=== PATIENT | female | born 1985 | race Caucasian/White ===

== ENCOUNTER 2017-04-12 14:03 | Emergency (ER) | payer BC ==
[~2017-04-12 14:03] MED LIST: IBUP600 PO; PREN0.01 PO
--- NOTE | 2017-04-12 15:34 | PD ---
HPI Chief Complaint pelvic pain Date Seen: Apr 12, 2017 Time Seen: 15:28 Travel History International Travel<30 Days: No Contact w/Intl Traveler<30Days: No Known Affected Area: No History of Present Illness HPI pt. is a @ 34 weeks present w/ c/o pelvic pressure. pt. states began feeling more and more pressure since last pm. was intense and unable to move legs. since improved. +FM, no lof/vb, no ctxs. Weeks Gestation: 34 Para: 2 : 3 History Past Medical History Medical History: Denies Significant Hx Past Surgical History Surgical History: No Previous Surgery Family History Family History: Negative Social History Alcohol Use: No Tobacco Use: No Substance Abuse: No Allergies-Medications (Allergen,Severity, Reaction): Coded Allergies: No Known Allergies (Unverified , 07/28/15) Home Meds Active Scripts Ibuprofen (Motrin 600 Mg Tab) 600 Mg Tab, 600 MG PO Q6H Y for CRAMPING, #30 TAB 0 Refills Prov:Keena Braden MD 08/02/15 Reported Medications Multivit/Min/Fol Ac/Iron/Pren ( Vit ( Plus)) Tab, 1 TAB PO DAILY, TAB 01/08/13 Review of Systems Except as stated in HPI: all other systems reviewed are Neg Physical Exam Narrative GENERAL: Well-nourished, well-developed patient. SKIN: Warm and dry. HEAD: Normocephalic and atraumatic. EYES: No scleral icterus. No injection or drainage. ENT: No nasal drainage noted. Mucous membranes pink. Airway patent. NECK: Supple, trachea midline. No JVD. CARDIOVASCULAR: Regular rate and rhythm without murmurs, gallops, or rubs. RESPIRATORY: Breath sounds equal bilaterally. No accessory muscle use. ABDOMEN/GI: Abdomen soft, non-tender, bowel sounds present, no rebound, no guarding GENITOURINARY: External Genitalia: intact and normal in appearance Cervix: Dilatation: closed Effacement: long Station: high Presentation: cephalic Membranes:intact Uterine Contractions: occasional FHT's: Category: 1 Baseline: [-] Reactive: + Variability: moderate Decels: none EXTREMITIES: No cyanosis or edema. BACK: Nontender without obvious deformity. No CVA tenderness. NEUROLOGICAL: Awake and alert. Motor and sensory grossly within normal limits. Five out of 5 muscle strength in all muscle groups. Normal speech. Data Data Vital Signs Reviewed: Yes [facility] Medical Record Reviewed: Yes Plan @ 34 weeks w/ pelvic pressure. condition d/w pt. pt. to be d/c to home. given precautions for return. all ? answered. f/u as sched. Diagnosis Diagnosis: Primary Impression: Feeling pelvic pressure during in third trimester, antepartum Additional Impression: 34 weeks gestation of Disposition: DISCHARGE HOME Condition: Stable Jose Alberto Henderson Jr., MD Apr 12, 2017 15:34
== END 2017-04-12 17:27 | disposition home or self-care (01) ==
LOC: HOBED 14:03
DX: O26.893 Other specified pregnancy related conditions, third trimester (principal); R10.2 Pelvic and perineal pain; Z3A.34 34 weeks gestation of pregnancy
CPT/HCPCS: 59025

== ENCOUNTER 2017-05-17 07:31 | Inpatient (IN) | payer BC ==
[2017-05-17] VITALS (53 sets, daily range): BP systolic 95–147; BP diastolic 53–123; PULSE 70–116; RESP 16–20; TEMP 97.7–98.5
[~2017-05-17] VITALS: Ht 172.7 cm; Wt 95.5 kg
[2017-05-17] MEDS: LACTATED RINGER'S 1000 ML INJ 1,000 ML IV SCH ×2 (07:49→11:04)
[2017-05-17] MEDS ORDERED: LACTATED RINGER'S 1000 ML INJ 1,000 ML IV PRN (07:49)
[2017-05-17] MEDS ORDERED: ONDANSETRON HCL 4 MG/2 ML VIAL IV PUSH PRN (08:00)
[2017-05-17] MEDS ORDERED: CITRIC ACID-SODIUM CITRATE LIQ 30 ML UDC PO SCH (08:00)
[2017-05-17] MEDS ORDERED: OXYTOCIN 30 UNITS-500ML PREMIX 500 ML IV PRN (08:00)
[2017-05-17] MEDS ORDERED: LIDOCAINE HCL 1% 50 ML VIAL INFIL PRN (08:00)
[2017-05-17] MEDS ORDERED: SODIUM CHLORID 0.9% 500 ML INJ 500 ML IV PRN (08:00)
[2017-05-17] MEDS ORDERED: MINERAL OIL 10 ML VIAL TOPICAL PRN (08:00)
[2017-05-17] MEDS ORDERED: OXYTOCIN 30 UNITS-500ML PREMIX 500 ML IV ONE (08:00)
[2017-05-17] MEDS ORDERED: LIDOCAINE HCL 1% 50 ML VIAL I-DERMAL PRN (08:00)
[2017-05-17] MEDS ORDERED: SODIUM CHLOR 0.9% 1000 ML INJ 1,000 ML IV PRN (08:09)
[2017-05-17 08:34] LABS: AUTOMATED NEUTROPHIL # 6.7 TH/MM3 (1.8-7.7); BASOPHIL % 0.5 % (0.0-2.0); EOSINOPHIL # 0.1 TH/MM3 (0-0.4); HEMATOCRIT 38.1 % (35.0-46.0); HEMOGLOBIN 13.1 GM/DL (11.6-15.3); LYMPH % 19.9 % (9.0-44.0); LYMPHOCYTE # 1.8 TH/MM3 (1.0-4.8); MEAN CELL VOLUME 86.1 FL (80.0-100.0); MEAN CORPUSCULAR HEMOGLOBIN 29.5 PG (27.0-34.0); MEAN CORPUSCULAR HGB CONC 34.3 % (32.0-36.0); MEAN PLATELET VOLUME 9.5 FL (7.0-11.0); MONO % 5.7 % (0.0-8.0); MONOCYTE # 0.5 TH/MM3 (0-0.9); NEUT % 72.9 % (16.0-70.0); PLATELET COUNT 234 TH/MM3 (150-450); RED BLOOD COUNT 4.42 MIL/MM3 (4.00-5.30); WHITE BLOOD COUNT 9.2 TH/MM3 (4.0-11.0)
[2017-05-17 08:40] LABS: BACTERIA, URINE RARE /hpf; BILIRUBIN, URINE NEG (NEG); BLOOD, URINE NEG (NEG); GLUCOSE,URINE NEG (NEG); KETONE, URINE TRACE mg/dL (NEG); MUCUS URINE FEW /lpf (OCC); NITRITE,URINE NEG (NEG); SQUAMOUS EPITHELIAL CELL URINE 11 /hpf (0-5); URINE COLOR YELLOW (YELLW/STRAW); URINE LEUKOCYTE ESTERASE MOD (NEG)
[2017-05-17] MEDS ORDERED: fentaNYL 2MCG-BUPIV 0.125% INJ 100 ML ONE (10:39)
[2017-05-17] MEDS ORDERED: ePHEDrine/NS 25 MG/5 ML SYRINGE ONE (10:39)
--- NOTE | 2017-05-17 10:42 | HHI.HP ---
HPI Chief Complaint iol Travel History International Travel<30 Days: No Contact w/Intl Traveler<30Days: No Known Affected Area: No History of Present Illness HPI 31 yo with iup at 39 w here for iol w favorable brownlee score and h/o precipitous delivery. She has good fm, contractions more consistent. No LOF or VB. She is RH neg, had rhogam at 28 wk. Varicella non-immune. Weeks Gestation: 39 Para: 2 : 3 History Past Medical History Medical History: Denies Significant Hx Obstetric History Obstetric History G1 12/2012 M 7lb 8 oz G2 07/2015 M 7 lb 8 oz, precipitous G3 current Past Surgical History Surgical History: No Previous Surgery Family History Family History: Negative Social History Alcohol Use: No Tobacco Use: No Substance Abuse: No Allergies-Medications (Allergen,Severity, Reaction): Coded Allergies: No Known Allergies (Unverified , 07/28/15) Home Meds Active Scripts Ibuprofen (Motrin 600 Mg Tab) 600 Mg Tab, 600 MG PO Q6H Y for CRAMPING, #30 TAB 0 Refills Prov:Keena Braden MD 08/02/15 Reported Medications Multivit/Min/Fol Ac/Iron/Pren ( Vit ( Plus)) Tab, 1 TAB PO DAILY, TAB 01/08/13 Review of Systems General / Constitutional: No: Fever, Weight Gain, Chills, Other Eyes: No: Diploplia, Blurred Vision, Visual changes, Pain, Photophobia HENT: No: Headaches, Vertigo, Lightheadedness Cardiovascular: No: Irregular Rhythm, Chest Pain or Discomfort, Palpitations, Tachycardia, Syncope, Varicosities, Edema, Cyanosis Respiratory: No: Cough, Short of Breath, Other Gastrointestinal: No: Nausea, Vomiting, Diarrhea Genitourinary: No: Decreased Urinary Output, Oliguria Musculoskeletal: No: Limited ROM, Weakness, Cramping, Edema, Pain Skin: No Rash, No Itching, No Dryness, No Lumps, No Change in Pigmentation, No Change in Nails, No Alopecia, No Lesions Neurologic: No: Weakness, Dizziness, Syncope, Focal Abnormalities, Coordination Problem, Headache, Slurred Speech, Seizures Psychiatric: No: Depression, Suicidal Ideations, Homicidal Ideation Endocrine: No: Heat Intolerance, Cold Intolerance, Polydipsia, Polyuria, Other Physical Exam Vital Signs Date Time Temp Pulse Resp B/P (MAP) Pulse Ox O2 Delivery O2 Flow Rate FiO2 05/17/17 09:30 16 05/17/17 09:00 87 133/86 (102) 05/17/17 09:00 16 05/17/17 08:54 90 118/77 (91) 05/17/17 08:50 96 05/17/17 08:45 95 05/17/17 08:00 18 05/17/17 07:52 112 124/75 (91) 05/17/17 07:52 98.5 Narrative GENERAL: Well-nourished, well-developed patient. SKIN: Warm and dry. HEAD: Normocephalic and atraumatic. EYES: No scleral icterus. No injection or drainage. ENT: No nasal drainage noted. Mucous membranes pink. Airway patent. NECK: Supple, trachea midline. No JVD. CARDIOVASCULAR: Regular rate and rhythm without murmurs, gallops, or rubs. RESPIRATORY: Breath sounds equal bilaterally. No accessory muscle use. ABDOMEN/GI: Abdomen soft, non-tender, bowel sounds present, no rebound, no guarding Gravid to40 weeks size Fundal Height: [-] GENITOURINARY: External Genitalia: intact and normal in appearance BUS glands: [-] Presentation: ceph Membranes: [intact Uterine Contractions: q 2 min FHT's: CategoryI Baseline: [140] Reactive: [-] Variability: [mod] Decels: [-] EXTREMITIES: No cyanosis or edema. BACK: Nontender without obvious deformity. No CVA tenderness. NEUROLOGICAL: Awake and alert. Motor and sensory grossly within normal limits. Five out of 5 muscle strength in all muscle groups. Normal speech. Caprini VTE Risk Assessment Caprini VTE Risk Assessment: No/Low Risk (score <= 1) Caprini Risk Assessment Model Point Value = 1 Point Value = 2 Point Value = 3 Point Value = 5 Age 41-60 Minor surgery BMI > 25 kg/m2 Swollen legs Varicose veins or History of unexplained or recurrent spontaneous Oral contraceptives or hormone replacement Sepsis (< 1 month) Serious lung disease, including pneumonia (< 1 month) Abnormal pulmonary function Acute myocardial infarction Congestive heart failure (< 1 month) History of inflammatory bowel disease Medical patient at bed rest Age 61-74 Arthroscopic surgery Major open surgery (> 45 min) Laparoscopic surgery (> 45 min) Malignancy Confined to bed (> 72 hours) Immobilizing plaster cast Central venous access Age >= 75 History of VTE Family history of VTE Factor V Leiden Prothrombin [id number] Lupus anticoagulant Anticardiolipin antibodies Elevated serum homocysteine Heparin-induced thrombocytopenia Other congenital or acquired thrombophilia Stroke (< 1 month) Elective arthroplasty Hip, pelvis, or leg fracture Acute spinal cord injury (< 1 month) Prophylaxis Regimen Total Risk Factor Score Risk Level Prophylaxis Regimen 0-1 Low Early ambulation 2 Moderate Order ONE of the following: *Sequential Compression Device (SCD) *Heparin 5000 units SQ BID 3-4 Higher Order ONE of the following medications: *Heparin 5000 units SQ TID *Enoxaparin/Lovenox 40 mg SQ daily (WT < 150 kg, CrCl > 30 mL/min) *Enoxaparin/Lovenox 30 mg SQ daily (WT < 150 kg, CrCl > 10-29 mL/min) *Enoxaparin/Lovenox 30 mg SQ BID (WT < 150 kg, CrCl > 30 mL/min) AND/OR *Sequential Compression Device (SCD) 5 or more Highest Order ONE of the following medications: *Heparin 5000 units SQ TID (Preferred with Epidurals) *Enoxaparin/Lovenox 40 mg SQ daily (WT < 150 kg, CrCl > 30 mL/min) *Enoxaparin/Lovenox 30 mg SQ daily (WT < 150 kg, CrCl > 10-29 mL/min) *Enoxaparin/Lovenox 30 mg SQ BID (WT < 150 kg, CrCl > 30 mL/min) AND *Sequential Compression Device (SCD) Data Data Vital Signs Reviewed: Yes Orders Orders Admit To Inpatient (05/17/17 ) Code Status (05/17/17 07:49) Vital Signs (Adult) .Per protocol (05/17/17 07:49) Activity Oob Ad Corine (05/17/17 07:49) Heart (05/17/17 07:49) Amnioinfusion (05/17/17 07:49) Urinary Catheter Management .ONCE (05/17/17 07:49) Diet Liquid (05/17/17 Breakfast) Lactated Ringer's 1000 Ml Inj (Lr 1000 M (05/17/17 07:49) Lactated Ringer's 1000 Ml Inj (Lr 1000 M (05/17/17 07:49) Sodium Chlorid 0.9% 500 Ml Inj (Ns 500 M (05/17/17 08:00) Sodium Chlor 0.9% 1000 Ml Inj (Ns 1000 M (05/17/17 08:09) Lidocaine 1% Inj (50 Ml) (Xylocaine 1% I (05/17/17 08:00) Citric Acid-Sodium Citrate Liq (Bicitra (05/17/17 08:00) Ondansetron Inj (Zofran Inj) (05/17/17 08:00) Fentanyl Inj (Fentanyl Inj) (05/17/17 08:00) Fentanyl Inj (Fentanyl Inj) (05/17/17 08:00) Complete Blood Count With Diff (05/17/17 07:49) Hold Clot (05/17/17 07:49) Abo/Rh Blood Type (05/17/17 07:49) Urinalysis - C+S If Indicated (05/17/17 07:49) Ob/Psych Drug Screen, Urine (05/17/17 07:49) Resp Oxygen Non Rebreathe Mask (05/17/17 ) ^ Epidural / Intrathecal Infus (05/17/17 07:49) Oxytocin 30 Units-500ml Premix (Pitocin (05/17/17 08:00) Lidocaine 1% Inj (50 Ml) (Xylocaine 1% I (05/17/17 08:00) Light Mineral Oil (Muri-Lube Oil) (05/17/17 08:00) ^ Non Stress Test (05/17/17 07:49) Response To Medication .Post New Med Administration, Reaction (05/17/17 07:49) ^ Discontinue Medication (05/17/17 07:49) Oxytocin 30 Units-500ml Premix (Pitocin (05/17/17 08:00) Inpatient Certification (05/17/17 ) Specimen To Be Collected PRN (05/17/17 07:49) Specimen To Be Collected PRN (05/17/17 07:49) Group B Strep: Negative Labs Laboratory Tests Test 05/17/17 07:45 White Blood Count 9.2 Red Blood Count 4.42 Hemoglobin 13.1 Hematocrit 38.1 Mean Corpuscular Volume 86.1 Mean Corpuscular Hemoglobin 29.5 Mean Corpuscular Hemoglobin Concent 34.3 Red Cell Distribution Width 14.0 Platelet Count 234 Mean Platelet Volume 9.5 Neutrophils (%) (Auto) 72.9 Lymphocytes (%) (Auto) 19.9 Monocytes (%) (Auto) 5.7 Eosinophils (%) (Auto) 1.0 Basophils (%) (Auto) 0.5 Neutrophils # (Auto) 6.7 Lymphocytes # (Auto) 1.8 Monocytes # (Auto) 0.5 Eosinophils # (Auto) 0.1 Basophils # (Auto) 0.0 CBC Comment DIFF FINAL Differential Comment Urine Color YELLOW Urine Turbidity HAZY Urine pH 6.0 Urine Specific [place] 1.020 Urine Protein TRACE Urine Glucose (UA) NEG Urine Ketones TRACE Urine Occult Blood NEG Urine Nitrite NEG Urine Bilirubin NEG Urine Urobilinogen LESS THAN 2.0 Urine Leukocyte Esterase MOD Urine RBC 2 Urine WBC 3 Urine Squamous Epithelial Cells 11 Urine Bacteria RARE Urine Mucus FEW Microscopic Urinalysis Comment CULT NOT INDICATED Urine Opiates Screen NEG Urine Barbiturates Screen NEG Urine Amphetamines Screen NEG Urine Benzodiazepines Screen NEG Urine Cocaine Screen NEG Urine Cannabinoids Screen NEG Assessment/Plan Problem List: (1) Labor and delivery indication for care or intervention ICD Codes: O75.9 - Complication of labor and delivery, unspecified (2) 39 weeks gestation of ICD Codes: Z3A.39 - 39 weeks gestation of (3) Rh negative state in antepartum period ICD Codes: O09.899 - Supervision of other high risk pregnancies, unspecified trimester; Z67.91 - Unspecified blood type, Rh negative Assessment and Plan 31 yo with iup at 39 wk by 6 wk u/s 1) IOL- favorable brownlee score, on low dose pit. Will get epidural and then AROM ' 2) GBS neg 3) RH neg- pp rhogam eval 4) Fetus- female "Roma Andrews" 8-8.5 lb base on u/s extrapolation (6 lb 7 oz at 35 weeks) 5) Varicella non-immune- pp vaccine Discharge Planning home, ppd2 Teagan Alonso MD May 17, 2017 10:42
[2017-05-17] MEDS ORDERED: NO SYSTEM NARCOTICS PRN (12:30)
[2017-05-17] MEDS ORDERED: ePHEDrine/NS 25 MG/5 ML SYRINGE IV PUSH PRN (12:30)
[2017-05-17] MEDS ORDERED: fentaNYL 2MCG-BUPIV 0.125% 100 ML EPIDURAL SCH (12:30)
[2017-05-17] MEDS ORDERED: DO NOT ADMINISTER ANTICOAGULANTS PRN (12:30)
--- NOTE | 2017-05-17 13:18 | PD.OB.DELI ---
Weeks gestation: 39 Pt started active labor?: Yes Medical induction of labor?: No Artificial rupture of membrane: Yes Anesthesia: Epidural Episiotomy: None Vaginal Delivery: Normal Presentation: Occiput anterior Nuchal Cord: x1 (reduced at perineum) : Female Delivery date: May 17, 2017 Delivery time: 13:07 One Minute : 9 Five Minute : 9 Weight: pending Laceration: No lacerations Estimated blood loss: 200ml Teagan Alonso MD May 17, 2017 13:18
[2017-05-17] MEDS ORDERED: WITCH HAZEL 50%/GLYCERIN 12.5% 40 PAD JAR TOPICAL PRN (13:30)
[2017-05-17] MEDS ORDERED: ALUMINUM/MAGNESIUM/SIMETH 30 ML CUP PO PRN (13:30)
[2017-05-17] MEDS ORDERED: OXYTOCIN 30 UNITS-500ML PREMIX 500 ML IV SCH (13:30)
[2017-05-17] MEDS ORDERED: SODIUM CHLORIDE 0.9% FLUSH 10 ML FLUSH IV FLUSH PRN (13:30)
[2017-05-17] MEDS ORDERED: ZOLPIDEM TARTRATE 5 MG TAB PO PRN (13:30)
[2017-05-17] MEDS ORDERED: ONDANSETRON ODT 4 MG TAB PO PRN (13:30)
[2017-05-17] MEDS ORDERED: BENZOCAINE 20% TOPICAL SPRAY 60 ML CAN TOPICAL PRN (13:30)
[2017-05-17] MEDS ORDERED: MEASLES, MUMPS, RUBELLA VACCINE 0.5 ML VIAL SQ ONE (16:00)
[2017-05-17] MEDS ORDERED: DIPHTH/TETANUS/ACEL PERTUSSIS (BOOSTER) 0.5 ML VIAL/PFS IM ONE (16:00)
[2017-05-17] MEDS: DOCUSATE SODIUM 50 MG/SENNA 8.6 MG TAB PO PRN (18:05)
[2017-05-17] MEDS: IBUPROFEN 800 MG TAB PO PRN (18:05)
[2017-05-17] MEDS: SODIUM CHLORIDE 0.9% FLUSH 10 ML FLUSH IV FLUSH SCH (20:50)
[2017-05-18] MEDS: ACETAMINOPHEN 325 MG TAB PO PRN ×3 (00:31→12:02)
[2017-05-18] MEDS: IBUPROFEN 800 MG TAB PO PRN ×2 (05:37→16:23)
--- NOTE | 2017-05-18 08:08 | HHI.OB ---
Subjective Post Day: 1 Remarks Doing well with third child discussed waiting until tomorrow for discharge with spouse no tears Objective Vitals/I&O Vital Signs Date Time Temp Pulse Resp B/P (MAP) Pulse Ox O2 Delivery O2 Flow Rate FiO2 05/17/17 21:30 76 104/62 (76) 05/17/17 21:30 97.7 18 05/17/17 16:40 98.1 72 18 121/72 (88) 05/17/17 14:25 16 05/17/17 14:15 78 121/80 (94) 05/17/17 14:10 18 05/17/17 14:00 86 133/83 (100) 05/17/17 13:55 18 05/17/17 13:40 16 05/17/17 13:31 90 139/56 (83) 05/17/17 13:28 91 128/91 (103) 05/17/17 13:25 18 05/17/17 13:25 97.8 05/17/17 13:15 81 147/123 (131) 05/17/17 13:10 18 05/17/17 13:00 116 128/90 (103) 05/17/17 13:00 20 05/17/17 12:50 100 05/17/17 12:45 86 116/58 (77) 05/17/17 12:45 86 05/17/17 12:40 76 05/17/17 12:35 76 05/17/17 12:30 80 120/67 (84) 05/17/17 12:30 83 05/17/17 12:30 18 05/17/17 12:25 83 05/17/17 12:20 80 05/17/17 12:15 79 114/65 (81) 05/17/17 12:15 77 05/17/17 12:10 75 05/17/17 12:05 75 05/17/17 12:00 18 05/17/17 12:00 76 05/17/17 12:00 79 104/56 (72) 05/17/17 11:55 78 05/17/17 11:54 76 108/53 (71) 05/17/17 11:51 82 109/67 (81) 05/17/17 11:50 78 05/17/17 11:48 81 102/65 (77) 05/17/17 11:47 98.1 05/17/17 11:45 77 05/17/17 11:45 87 95/81 (86) 05/17/17 11:42 97 114/77 (89) 05/17/17 11:40 86 05/17/17 11:39 81 127/81 (96) 05/17/17 11:36 76 117/66 (83) 05/17/17 11:35 92 05/17/17 11:33 91 119/76 (90) 05/17/17 11:30 102 127/77 (94) 05/17/17 11:30 18 05/17/17 11:30 93 05/17/17 11:27 92 125/71 (89) 05/17/17 11:25 88 05/17/17 11:24 85 125/75 (92) 05/17/17 11:20 83 05/17/17 11:00 70 112/84 (93) 05/17/17 11:00 18 05/17/17 10:30 77 126/86 (99) 05/17/17 10:00 82 128/81 (97) 05/17/17 09:30 16 05/17/17 09:30 83 119/71 (87) 05/17/17 09:00 87 133/86 (102) 05/17/17 09:00 16 05/17/17 08:54 90 118/77 (91) 05/17/17 08:50 96 05/17/17 08:45 95 Objective Remarks GENERAL: Well-nourished, well-developed patient. CARDIOVASCULAR: Regular rate and rhythm without murmurs, gallops, or rubs. RESPIRATORY: Breath sounds equal bilaterally. No accessory muscle use. ABDOMEN/GI: Abdomen soft, non-tender. Fundus: Firm, non-tender at umbilicus. GENITOURINARY: Light to moderate bleeding. EXTREMITIES: No cyanosis or edema, non-tender, without signs of DVT. Medications and IVs Current Medications Medications (Trade) Dose Ordered Sig/Rick Route Start Time Stop Time Status Last Admin (NS Flush) 2 ml BID IV FLUSH 05/17/17 21:00 (NS Flush) 2 ml UNSCH PRN IV FLUSH 05/17/17 13:30 (Tylenol) 650 mg Q4H PRN PO 05/17/17 13:30 05/18/17 05:37 (Motrin) 800 mg Q8H PRN PO 05/17/17 13:30 05/18/17 05:37 (Americaine 20% Top Spr) 1 spray Q4H PRN TOPICAL 05/17/17 13:30 05/17/17 18:05 (Tucks Pads) 1 applic QID PRN TOPICAL 05/17/17 13:30 05/17/17 18:05 (Jessy-Colace) 2 tab Q12H PRN PO 05/17/17 13:30 05/17/17 18:05 (Ambien) 5 mg HS PRN PO 05/17/17 13:30 (Mag-Al Plus Susp Liq) 15 ml Q8H PRN PO 05/17/17 13:30 (Zofran Odt) 4 mg Q6H PRN PO 05/17/17 13:30 Assessment/Plan Problem List: (1) Labor and delivery indication for care or intervention ICD Codes: O75.9 - Complication of labor and delivery, unspecified (2) 39 weeks gestation of ICD Codes: Z3A.39 - 39 weeks gestation of (3) Rh negative state in antepartum period ICD Codes: O09.899 - Supervision of other high risk pregnancies, unspecified trimester; Z67.91 - Unspecified blood type, Rh negative Assessment and Plan 31 yo with iup at 39 wk by 6 wk u/s 1) IOL- favorable brownlee score, on low dose pit. Will get epidural and then AROM ' 2) GBS neg 3) RH neg- pp rhogam eval 4) Fetus- female "Roma Andrews" 8-8.5 lb base on u/s extrapolation (6 lb 7 oz at 35 weeks) 5) Varicella non-immune- pp vaccine Discharge Planning home, ppd2 05/18/17 Doing well home in Xochitl Morales MD May 18, 2017 08:08
[2017-05-18 08:10] VITALS: BP 107/80; PULSE 93; RESP 20; TEMP 97.6
[2017-05-18] MEDS: SODIUM CHLORIDE 0.9% FLUSH 10 ML FLUSH IV FLUSH SCH (08:38)
[2017-05-18 20:29] VITALS: BP 121/82; PULSE 76; RESP 18; TEMP 97.9
[2017-05-19] MEDS: DOCUSATE SODIUM 50 MG/SENNA 8.6 MG TAB PO PRN
--- NOTE | 2017-05-19 08:02 | HHI.OB ---
Subjective Post Day: 2 Remarks PPD#2; stable, Objective Vitals/I&O Vital Signs Date Time Temp Pulse Resp B/P (MAP) Pulse Ox O2 Delivery O2 Flow Rate FiO2 05/18/17 20:29 97.9 76 18 121/82 (95) 05/18/17 08:10 97.6 93 20 107/80 (89) Objective Remarks GENERAL: Well-nourished, well-developed patient. CARDIOVASCULAR: Regular rate and rhythm without murmurs, gallops, or rubs. RESPIRATORY: Breath sounds equal bilaterally. No accessory muscle use. ABDOMEN/GI: Abdomen soft, non-tender. Fundus: Firm, non-tender at umbilicus. GENITOURINARY: Light to moderate bleeding. EXTREMITIES: No cyanosis or edema, non-tender, without signs of DVT. Medications and IVs Current Medications Medications (Trade) Dose Ordered Sig/Rcik Route Start Time Stop Time Status Last Admin (NS Flush) 2 ml BID IV FLUSH 05/17/17 21:00 (NS Flush) 2 ml UNSCH PRN IV FLUSH 05/17/17 13:30 (Tylenol) 650 mg Q4H PRN PO 05/17/17 13:30 05/18/17 12:02 (Motrin) 800 mg Q8H PRN PO 05/17/17 13:30 05/19/17 00:00 (Americaine 20% Top Spr) 1 spray Q4H PRN TOPICAL 05/17/17 13:30 05/17/17 18:05 (Tucks Pads) 1 applic QID PRN TOPICAL 05/17/17 13:30 05/17/17 18:05 (Jessy-Colace) 2 tab Q12H PRN PO 05/17/17 13:30 05/19/17 00:00 (Ambien) 5 mg HS PRN PO 05/17/17 13:30 (Mag-Al Plus Susp Liq) 15 ml Q8H PRN PO 05/17/17 13:30 (Zofran Odt) 4 mg Q6H PRN PO 05/17/17 13:30 Assessment/Plan Problem List: (1) Labor and delivery indication for care or intervention ICD Codes: O75.9 - Complication of labor and delivery, unspecified (2) 39 weeks gestation of ICD Codes: Z3A.39 - 39 weeks gestation of (3) Rh negative state in antepartum period ICD Codes: O09.899 - Supervision of other high risk pregnancies, unspecified trimester; Z67.91 - Unspecified blood type, Rh negative Assessment and Plan 31 yo PPD#2. Stable. Cleared for discharge home. Discharge Planning home, 05/18/17 Doing well Attending Attestation seen by Tevin Salgado MD May 19, 2017 08:02
--- NOTE | 2017-05-19 08:03 | HHI.DS ---
Admission Date May 17, 2017 at 07:31 Admitting Diagnosis Diagnosis: Delivery Date: May 17, 2017 Vaginal Delivery: Normal : Female Brief History 31 yo with iup at 39 w here for iol w favorable brownlee score and h/o precipitous delivery. She has good fm, contractions more consistent. No LOF or VB. She is RH neg, had rhogam at 28 wk. Varicella non-immune. Pt Condition on Discharge: Good Discharge Disposition: Discharge Home Discharge Instructions Diet Instructions: As Tolerated, No Restrictions Activities You Can Perform: Shower Only-No Bath Activities to Avoid: Driving for 24 hrs, Prolonged Standing, Strenuous Activity , Sexual Activity Tevin Moya MD May 19, 2017 08:03
[2017-05-19 08:10] VITALS: BP 117/80; PULSE 77; RESP 20; TEMP 97.8
[2017-05-19] MEDS: SODIUM CHLORIDE 0.9% FLUSH 10 ML FLUSH IV FLUSH SCH (08:40)
[2017-05-19] MEDS: IBUPROFEN 800 MG TAB PO PRN ×2 (10:30)
== END 2017-05-19 12:36 | disposition home or self-care (01) | DRG 775 ==
LOC: H2EA 07:31 → H1EA 16:01
PROVIDERS: ADMIT Obstetrics & Gynecology; ATTEND Obstetrics & Gynecology
PROC: 10E0XZZ Delivery of Products of Conception, External Approach (ICD-10-PCS; principal; 2017-05-17)
PROC: 10907ZC Drainage of Amniotic Fluid, Therapeutic from Products of Conception, Via Natural or Artificial Opening (ICD-10-PCS; 2017-05-17)
PROC: 3E0R3BZ Introduction of Anesthetic Agent into Spinal Canal, Percutaneous Approach (ICD-10-PCS; 2017-05-17)
PROC: 00HU33Z Insertion of Infusion Device into Spinal Canal, Percutaneous Approach (ICD-10-PCS; 2017-05-17)
DX: O75.89 Other specified complications of labor and delivery (principal); O26.893 Other specified pregnancy related conditions, third trimester; Z37.0 Single live birth; Z3A.39 39 weeks gestation of pregnancy
CPT/HCPCS: 59025; 80307; 81001; 85025; J2590; J7120